=== PATIENT | female | born 1975 | race Caucasian/White ===

== ENCOUNTER 2016-07-18 15:06 | Emergency (ER) | payer OTHER ==
[~2016-07-18] VITALS: Ht 160 cm; Wt 59.0 kg
[~2016-07-18 15:06] MED LIST: FERR325T PO; MIDO200C PO; NAPR500 PO
[2016-07-18 15:10] VITALS: BP 119/67; PULSE 88; RESP 16; TEMP 98.6; O2SAT 98
[2016-07-18] MEDS ORDERED: DOXY1CAP74 PO (15:24)
[2016-07-18] MEDS ORDERED: SODIUM CHLOR 0.9% 1000 ML INJ 1,000 ML IV SCH (15:27)
[2016-07-18] MEDS ORDERED: SODIUM CHLORIDE 0.9% FLUSH 10 ML FLUSH IV FLUSH PRN (15:30)
[2016-07-18] MEDS ORDERED: ALUMINUM/MAGNESIUM/SIMETH 30 ML CUP PO ONE (15:30)
[2016-07-18] MEDS ORDERED: ONDANSETRON HCL 4 MG/2 ML VIAL IVP ONE (15:30)
[2016-07-18] MEDS ORDERED: LIDOCAINE VISCOUS 2% SOLN 15 ML UDC PO ONE (15:30)
--- NOTE | 2016-07-18 15:42 | PD ---
HPI Chief Complaint: Abdominal Pain Time Seen by Provider: 15:16 Travel History International Travel<30 days: No Contact w/Intl Traveler<30days: No Traveled to known affect area: No History of Present Illness HPI Patient is a 40-year-old female who presents to emergency room with complaints of nausea. Patient reports that she is having a little bit of indigestion, reports that she feels nauseous but has not vomited. Patient was concerned that she may be , reports that she took a home test which was negative, reports concern as "you can't trust those over the counter test." Patient has not missed any periods. Reports that her cycle has been normal. Denies fever/chills. Patient denies any abdominal pain at this time, denies urinary urgency or frequency. PFSH Past Medical History Hx Anticoagulant Therapy: No Cardiovascular Problems: No Chemotherapy: No Cerebrovascular Accident: No Diabetes: No Diminished Hearing: No Respiratory: No Immunizations Current: Yes Tetanus Vaccination: < 5 Years Influenza Vaccination: No ?: Unknown : 2 Para: 2 Miscarriage: 0 : 0 Past Surgical History Gynecologic Surgery: Yes (OVARIAN BURNING OF ABNORMAL CELLS) Hysterectomy: No Other Surgery: Yes (BREAST IMPLANTS) Social History Alcohol Use: Yes (RARE) Tobacco Use: Yes (1/2-1 PPD) Substance Use: No Allergies-Medications (Allergen,Severity, Reaction): Coded Allergies: No Known Allergies (Unverified , 07/18/16) Reported Meds & Prescriptions Reported Meds & Active Scripts Active Reported Doxycycline 40 Mg Cap 40 Mg PO DAILY Review of Systems General / Constitutional: No: Fever, Chills Eyes: No: Visual changes HENT: No: Headaches Cardiovascular: No: Chest Pain or Discomfort Respiratory: No: Shortness of Breath Gastrointestinal: Positive: Nausea, No: Vomiting, Diarrhea, Abdominal Pain Genitourinary: No: Dysuria Musculoskeletal: No: Pain Skin: No Rash Neurologic: No: Weakness Psychiatric: No: Depression Endocrine: No: Polydipsia Hematologic/Lymphatic: No: Easy Bruising Physical Exam Narrative GENERAL: No acute distress, nontoxic, patient smiling on exam SKIN: Focused skin assessment warm/dry. HEAD: Atraumatic. Normocephalic. EYES:. No scleral icterus. No injection or drainage. ENT: No nasal bleeding or discharge. Mucous membranes pink and moist. NECK: Trachea midline. No JVD. CARDIOVASCULAR: Regular rate and rhythm. No murmur appreciated. RESPIRATORY: No accessory muscle use. Clear to auscultation. Breath sounds equal bilaterally. GASTROINTESTINAL: Abdomen soft, non-tender, nondistended. Hepatic and splenic margins not palpable. MUSCULOSKELETAL: No obvious deformities. No clubbing. No cyanosis. No edema. NEUROLOGICAL: Awake and alert. No obvious cranial nerve deficits. Motor grossly within normal limits. Normal speech. PSYCHIATRIC: Appropriate mood and affect; insight and judgment normal. Data Data Last Documented VS Vital Signs Date Time Temp Pulse Resp B/P Pulse Ox O2 Delivery O2 Flow Rate FiO2 07/18/16 15:20 16 07/18/16 15:10 98.6 88 119/67 98 Orders Complete Blood Count With Diff (07/18/16 15:27) Comprehensive Metabolic Panel (07/18/16 15:27) Lipase (07/18/16 15:27) Urinalysis - C+S If Indicated (07/18/16 15:27) Iv Access Insert/Monitor (07/18/16 15:27) Ondansetron Inj (Zofran Inj) (07/18/16 15:30) Sodium Chlor 0.9% 1000 Ml Inj (Ns 1000 M (07/18/16 15:27) Sodium Chloride 0.9% Flush (Ns Flush) (07/18/16 15:30) Al-Mag Hy-Si 40-40-4 Mg/Ml Liq (Mag-Al P (07/18/16 15:30) Lidocaine 2% Viscous (Xylocaine 2% Visco (07/18/16 15:30) Ed Urine Pregnancytest Poc (07/18/16 15:27) Labs Laboratory Tests Test 07/18/16 15:36 White Blood Count 7.6 TH/MM3 Red Blood Count 4.78 MIL/MM3 Hemoglobin 14.3 GM/DL Hematocrit 42.0 % Mean Corpuscular Volume 87.9 FL Mean Corpuscular Hemoglobin 29.8 PG Mean Corpuscular Hemoglobin 33.9 % Concent Red Cell Distribution Width 12.6 % Platelet Count 227 TH/MM3 Mean Platelet Volume 9.7 FL Neutrophils (%) (Auto) 68.9 % Lymphocytes (%) (Auto) 21.7 % Monocytes (%) (Auto) 7.8 % Eosinophils (%) (Auto) 0.8 % Basophils (%) (Auto) 0.8 % Neutrophils # (Auto) 5.2 TH/MM3 Lymphocytes # (Auto) 1.6 TH/MM3 Monocytes # (Auto) 0.6 TH/MM3 Eosinophils # (Auto) 0.1 TH/MM3 Basophils # (Auto) 0.1 TH/MM3 CBC Comment DIFF FINAL Differential Comment Urine Color YELLOW Urine Turbidity CLEAR Urine pH 6.0 Urine Specific [place] 1.001 Urine Protein NEG mg/dL Urine Glucose (UA) NEG mg/dL Urine Ketones NEG mg/dL Urine Occult Blood NEG Urine Nitrite NEG Urine Bilirubin NEG Urine Leukocyte Esterase NEG Urine WBC 0-2 /hpf Urine Squamous Epithelial 0-5 /hpf Cells Microscopic Urinalysis Comment CULT NOT INDICATED Sodium Level 143 MEQ/L Potassium Level 3.5 MEQ/L Chloride Level 107 MEQ/L Carbon Dioxide Level 27.6 MEQ/L Anion Gap 8 MEQ/L Blood Urea Nitrogen 6 MG/DL Creatinine 0.78 MG/DL Estimat Glomerular Filtration 82 ML/MIN Rate Random Glucose 121 MG/DL Calcium Level 8.9 MG/DL Total Bilirubin 0.5 MG/DL Aspartate Amino Transf 17 U/L (AST/SGOT) Alanine Aminotransferase 19 U/L (ALT/SGPT) Alkaline Phosphatase 52 U/L Total Protein 7.7 GM/DL Albumin 4.0 GM/DL Lipase 94 U/L [facility] Medical Decision Making Medical Screen Exam Complete: Yes Emergency Medical Condition: Yes Interpretation(s) Vital Signs Date Time Temp Pulse Resp B/P Pulse Ox O2 Delivery O2 Flow Rate FiO2 07/18/16 15:20 16 07/18/16 15:10 98.6 88 16 119/67 98 Differential Diagnosis GERD, esophagitis, gastroenteritis, , electrolyte abnormality Narrative Course Patient is a 40-year-old female who presents to emergency room with complaints of nausea. Patient reports that she has been feeling nauseous all day, reports concern for possible . Patient reports no abdominal pain, denies constipation or diarrhea. Patient denies dysuria, urinary urgency or frequency. Overall, patient is well-appearing, she is laughing and smiling on exam. Abdomen is soft, nontender, nondistended, no peritoneal signs. Plan to obtain basic labs, will give IV Zofran as well as GI cocktail and observed. Will check for test. Urine test negative Laboratory Tests Test 07/18/16 15:36 White Blood Count 7.6 TH/MM3 (4.0-11.0) Red Blood Count 4.78 MIL/MM3 (4.00-5.30) Hemoglobin 14.3 GM/DL (11.6-15.3) Hematocrit 42.0 % (35.0-46.0) Mean Corpuscular Volume 87.9 FL (80.0-100.0) Mean Corpuscular Hemoglobin 29.8 PG (27.0-34.0) Mean Corpuscular Hemoglobin 33.9 % Concent (32.0-36.0) Red Cell Distribution Width 12.6 % (11.6-17.2) Platelet Count 227 TH/MM3 (150-450) Mean Platelet Volume 9.7 FL (7.0-11.0) Neutrophils (%) (Auto) 68.9 % (16.0-70.0) Lymphocytes (%) (Auto) 21.7 % (9.0-44.0) Monocytes (%) (Auto) 7.8 % (0.0-8.0) Eosinophils (%) (Auto) 0.8 % (0.0-4.0) Basophils (%) (Auto) 0.8 % (0.0-2.0) Neutrophils # (Auto) 5.2 TH/MM3 (1.8-7.7) Lymphocytes # (Auto) 1.6 TH/MM3 (1.0-4.8) Monocytes # (Auto) 0.6 TH/MM3 (0-0.9) Eosinophils # (Auto) 0.1 TH/MM3 (0-0.4) Basophils # (Auto) 0.1 TH/MM3 (0-0.2) CBC Comment DIFF FINAL Differential Comment Urine Color YELLOW (YELLW/STRAW) Urine Turbidity CLEAR (CLEAR) Urine pH 6.0 (5.0-8.5) Urine Specific [place] 1.001 (1.002-1.035) Urine Protein NEG mg/dL (NEG-TRACE) Urine Glucose (UA) NEG mg/dL (NEG) Urine Ketones NEG mg/dL (NEG) Urine Occult Blood NEG (NEG) Urine Nitrite NEG (NEG) Urine Bilirubin NEG (NEG) Urine Leukocyte Esterase NEG (NEG) Urine WBC 0-2 /hpf (0-5) Urine Squamous Epithelial 0-5 /hpf (0-5) Cells Microscopic Urinalysis Comment CULT NOT INDICATED Sodium Level 143 MEQ/L (136-145) Potassium Level 3.5 MEQ/L (3.5-5.1) Chloride Level 107 MEQ/L (98-107) Carbon Dioxide Level 27.6 MEQ/L (21.0-32.0) Anion Gap 8 MEQ/L (5-15) Blood Urea Nitrogen 6 MG/DL (7-18) Creatinine 0.78 MG/DL (0.50-1.00) Estimat Glomerular Filtration 82 ML/MIN (>89) Rate Random Glucose 121 MG/DL (74-106) Calcium Level 8.9 MG/DL (8.5-10.1) Total Bilirubin 0.5 MG/DL (0.2-1.0) Aspartate Amino Transf 17 U/L (15-37) (AST/SGOT) Alanine Aminotransferase 19 U/L (10-53) (ALT/SGPT) Alkaline Phosphatase 52 U/L (45-117) Total Protein 7.7 GM/DL (6.4-8.2) Albumin 4.0 GM/DL (3.4-5.0) Lipase 94 U/L (73-393) Patient re-evaluated, patient reports that she is feeling much better at this time. Reports complete resolution of nausea. Patient reports that "it must have been something I ate this week because I ate blooming onions on Saturday and I had 40 chicken wings with my on Saturday." Discussed need for bland foods for the next week. Will start patient on omeprazole. Abdomen is soft, nt/ nd, no peritoneal signs on discharge. Diagnosis Primary Impression: Nausea Additional Impression: GERD (gastroesophageal reflux disease) Qualified Code: K21.9 - Gastroesophageal reflux disease, esophagitis presence not specified Patient Instructions: General Instructions Additional Instructions: Please follow up with you primary care doctor Please return to emergency room as needed Return to the emergency room if symptoms return Scripts Omeprazole 40 Mg Cap40 Mg PO DAILY #14 CAP Ref 0 Prov:Deborah Oquendo DO 07/18/16 Disposition: 01 DISCHARGE HOME Condition: Stable Deborah Oquendo DO Jul 18, 2016 15:42
[2016-07-18 16:03] LABS: AUTOMATED NEUTROPHIL # 5.2 TH/MM3 (1.8-7.7); BASOPHIL # 0.1 TH/MM3 (0-0.2); BASOPHIL % 0.8 % (0.0-2.0); EOSINOPHIL # 0.1 TH/MM3 (0-0.4); EOSINOPHIL % 0.8 % (0.0-4.0); HEMO FLAGS DIFF FINAL; LYMPH % 21.7 % (9.0-44.0); LYMPHOCYTE # 1.6 TH/MM3 (1.0-4.8); MEAN CELL VOLUME 87.9 FL (80.0-100.0); MEAN CORPUSCULAR HEMOGLOBIN 29.8 PG (27.0-34.0); MEAN CORPUSCULAR HGB CONC 33.9 % (32.0-36.0); MONO % 7.8 % (0.0-8.0); NEUT % 68.9 % (16.0-70.0); PLATELET COUNT 227 TH/MM3 (150-450); RED BLOOD COUNT 4.78 MIL/MM3 (4.00-5.30); RED CELL DISTRIBUTION WIDTH 12.6 % (11.6-17.2); WHITE BLOOD COUNT 7.6 TH/MM3 (4.0-11.0)
[2016-07-18 16:04] LABS: BLOOD, URINE NEG (NEG); GLUCOSE,URINE NEG (NEG); KETONE, URINE NEG (NEG); NITRITE,URINE NEG (NEG)
[2016-07-18 16:11] LABS: CHLORIDE 107 MEQ/L (98-107); POTASSIUM 3.5 MEQ/L (3.5-5.1); SODIUM (NA) 143 MEQ/L (136-145)
[2016-07-18 16:15] LABS: ANION GAP 8 MEQ/L (5-15); BICARBONATE 27.6 MEQ/L (21.0-32.0); BLOOD UREA NITROGEN 6 MG/DL (7-18)
[2016-07-18 16:18] LABS: ALT (GPT) 19 U/L (10-53); AST (GOT) 17 U/L (15-37); GLOMERULAR FILTRATION RATE 82 ML/MIN (>89); URINE COLOR YELLOW (YELLW/STRAW)
[2016-07-18 16:19] LABS: COMMENT (UR) CULT NOT INDICATED; CULTURE IF INDICATED CULT NOT INDICATED; SQUAMOUS EPITHELIAL CELL URINE 0-5 /hpf (0-5); WBC, URINE 0-2 /hpf (0-5)
[2016-07-18 16:20] LABS: TOTAL BILIRUBIN ADULT 0.5 MG/DL (0.2-1.0)
[2016-07-18 16:21] LABS: ALKALINE PHOSPHATASE 52 U/L (45-117)
[2016-07-18] MEDS ORDERED: OMEP40CA2 PO (16:27)
[2016-07-18 16:36] VITALS: BP 145/65
[2016-07-18] MEDS ORDERED: ZOFR4TAB3 SL (20:31)
== END 2016-07-18 16:43 | disposition home or self-care (01) ==
LOC: PHED 15:06
DX: R11.0 Nausea (principal); K21.9 Gastro-esophageal reflux disease without esophagitis; F17.200 Nicotine dependence, unspecified, uncomplicated
CPT/HCPCS: 80053; 81001; 83690; 84703; 85025; 96361; 96374; 99284; J2405; J7030

== ENCOUNTER 2016-07-18 19:24 | Emergency (ER) | payer OTHER ==
[~2016-07-18] VITALS: Ht 160 cm; Wt 59.3 kg
[~2016-07-18 19:24] MED LIST changes: +DOXY1CAP74 PO; +OMEP40CA2 PO
[2016-07-18 19:32] VITALS: BP 103/64; PULSE 79; RESP 14; TEMP 98.2; O2SAT 98
[2016-07-18] MEDS ORDERED: ONDANSETRON ODT 4 MG TAB PO ONE (20:15)
[2016-07-18] MEDS ORDERED: SUCRALFATE 1 GM/10 ML CUP PO ONE (20:15)
[2016-07-18] MEDS ORDERED: ZOFR4TAB3 SL (20:31)
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
[2016-07-18] MEDS ORDERED: ALPRAZolam 0.5 MG TAB PO ONE (21:00)
[2016-07-18 21:28] VITALS: BP 98/60; PULSE 70; RESP 20; O2SAT 98
[2016-07-18 21:48] VITALS: BP 102/57; PULSE 70; O2SAT 97
== END 2016-07-18 21:53 | disposition home or self-care (01) ==
LOC: PHEFT 19:24
DX: K29.00 Acute gastritis without bleeding (principal)
CPT/HCPCS: 99283

== ENCOUNTER 2017-03-01 05:53 | Observation (INO) | payer OTHER ==
--- NOTE | 2017-02-28 22:29 | MH ---
cc: AMOS PIÑA DATE OF ADMISSION 03/01/2017 DATE OF SURGERY 03/01/17 HISTORY OF PRESENT ILLNESS The patient is a 41-year-old white female, who started with our office in January of 2017. She presented complaining with a 4-month history of a palpable bulge from the vagina with pelvic pressure and increased pain with her periods and difficulty passing a bowel movement. She had no other complaints. Examination at that time revealed that she had pelvic prolapse with a cystocele second-degree. second-degree rectocele and third-degree uterine prolapse. We talked by different treatment options for that and she was most interested in having surgical repair with a TVH and anterior and posterior coporrhaphy and that is what we will proceed to do. She is aware of the risks of the surgery including but not limited to infection, bleeding, damage to internal organs requiring repair such as damage to the bladder, the bowel, the ureter. She would like to proceed. PAST MEDICAL HISTORY Negative. PAST SURGICAL HISTORY Cone biopsy MEDICATIONS Currently Paxil. ALLERGIES LATEX CORTISONE CREAM SOCIAL HISTORY Half a pack per day of tobacco. No alcohol or drug use. She is and a homemaker. FAMILY HISTORY Coronary artery disease and CVA. GYNECOLOGIC HISTORY She has had a cone biopsy with negative follow-up. OBSTETRICAL HISTORY x2 PHYSICAL EXAMINATION VITAL SIGNS: Her weight is 138, blood pressure 110/70, pulse 70. BREASTS: Without masses, nodes or discharge. CHEST: Clear to auscultation bilaterally. CARDIAC: Regular rate and rhythm without murmur, rub or gallop. ABDOMEN: Soft and nontender, nondistended. No hepatosplenomegaly. No CVA tenderness. No hernias noted. PELVIC: vulva, vagina, normal external female genitalia. She has a second-degree cystocele, second-degree rectocele third-degree uterine prolapse. Uterus is mobile, nontender, no adnexal masses. ASSESSMENT/PLAN Symptomatic uterine prolapse and symptomatic cystocele and rectocele. PLAN Transvaginal hysterectomy with anterior posterior colporrhaphy. MD GRACE Hollis/ /9:03 PM /10:10 PM
[~2017-03-01] VITALS: Ht 160 cm; Wt 60.8 kg
[~2017-03-01 05:53] MED LIST changes: +CLOB0.055 TOPICAL; -DOXY1CAP74 PO; -FERR325T PO; -MIDO200C PO; -NAPR500 PO; -OMEP40CA2 PO; +PARO20TA2 PO
[2017-03-01] MEDS ORDERED: POVIDONE IODINE 5% (ANTISEPSIS KIT) 4 APPLICATIONS EACH NARE PRN (06:15)
[2017-03-01] MEDS ORDERED: METOPROLOL TARTRATE 25 MG TAB PO PRN (06:15)
[2017-03-01] MEDS ORDERED: SODIUM CHLORID 0.9% 500 ML IV PRN (06:15)
[2017-03-01] MEDS ORDERED: LACTATED RINGER'S 1000 ML IV PRN (06:15)
[2017-03-01] MEDS ORDERED: CHLORHEXIDINE GLUCONATE 2 % 1 PACK (2 CLOTHS) TOPICAL PRN (06:15)
[2017-03-01] MEDS ORDERED: ACETAMINOPHEN 1000 MG/100 ML 100 ML IV ONE (06:52)
[2017-03-01 06:59] LABS: AUTOMATED NEUTROPHIL # 4.5 TH/MM3 (1.8-7.7); BASOPHIL # 0.1 TH/MM3 (0-0.2); BASOPHIL % 1.3 % (0.0-2.0); EOSINOPHIL # 0.2 TH/MM3 (0-0.4); EOSINOPHIL % 2.3 % (0.0-4.0); HEMATOCRIT 40.7 % (35.0-46.0); HEMOGLOBIN 14.1 GM/DL (11.6-15.3); LYMPH % 26.8 % (9.0-44.0); LYMPHOCYTE # 2.1 TH/MM3 (1.0-4.8); MEAN CELL VOLUME 89.8 FL (80.0-100.0); MEAN CORPUSCULAR HEMOGLOBIN 31.1 PG (27.0-34.0); MEAN CORPUSCULAR HGB CONC 34.7 % (32.0-36.0); MEAN PLATELET VOLUME 9.5 FL (7.0-11.0); MONO % 13.1 % (0.0-8.0); NEUT % 56.5 % (16.0-70.0); PLATELET COUNT 264 TH/MM3 (150-450); RED BLOOD COUNT 4.53 MIL/MM3 (4.00-5.30); RED CELL DISTRIBUTION WIDTH 13.3 % (11.6-17.2); WHITE BLOOD COUNT 7.9 TH/MM3 (4.0-11.0)
[2017-03-01] MEDS ORDERED: VASOPRESSIN 20 UNITS/ML VIAL (IVTITR) ONE (07:01)
[2017-03-01] MEDS ORDERED: LIDOCAINE 2%/EPINEPHrine PF 1:200,000 20ML SDV ONE (07:01)
[2017-03-01] MEDS ORDERED: ceFAZolin INJ 1,000 MG VIAL IV PUSH ONE (08:30)
[2017-03-01] MEDS ORDERED: ESTROGENS CONJUGATED VAG CREA 15 APPL/30 GM TUBE ONE (09:29)
[2017-03-01] MEDS ORDERED: DO NOT ADM ANY ANTICOAGULANT DRUGS PRN (10:02)
[2017-03-01] MEDS ORDERED: *ONDANSETRON 4 MG VIAL PERIprocedural Use ONLY ONE (10:11)
[2017-03-01] MEDS ORDERED: *morphine SULFATE 10 MG/ML PERIprocedure ONLY ONE (10:11)
[2017-03-01] MEDS ORDERED: oxyCODONE/ACETAMINOPHEN 5 MG/325 MG TAB PO PRN ×2 (10:15)
[2017-03-01] MEDS ORDERED: SODIUM CHLORIDE 0.9% FLUSH 10 ML FLUSH IV FLUSH PRN (10:15)
[2017-03-01] MEDS ORDERED: HYDROmorphone HCL PF 1 MG/ML VIAL IVP PRN (10:15)
[2017-03-01] MEDS ORDERED: ONDANSETRON HCL 4 MG/2 ML VIAL IVP PRN (10:15)
[2017-03-01] MEDS ORDERED: diphenhydrAMINE HCL 25 MG CAP PO PRN (10:15)
[2017-03-01] MEDS ORDERED: *PROMETHAZINE 25 MG/ML VIAL PERIprocedural use ONLY ONE (10:41)
[2017-03-01] MEDS: LACTATED RINGER'S 1000 ML INJ 1,000 ML IV SCH ×2 (10:45→23:42)
[2017-03-01 11:10] VITALS: BP 98/61; PULSE 76; RESP 13; TEMP 97.2; O2SAT 100
[2017-03-01] MEDS ORDERED: PROPOFOL 200 MG/20 ML AMP IV ONE (12:00)
[2017-03-01] MEDS ORDERED: ceFAZolin INJ 1,000 MG VIAL IV ONE (12:00)
[2017-03-01] MEDS ORDERED: ONDANSETRON HCL 4 MG/2 ML VIAL IV ONE (12:00)
[2017-03-01] MEDS ORDERED: ROCURONIUM INJ 50 MG/5 ML SYRINGE IV PUSH ONE (12:00)
[2017-03-01] MEDS ORDERED: GLYCOPYRROLATE 1 MG/5 ML SYRINGE IV PUSH ONE (12:00)
[2017-03-01] MEDS ORDERED: KETOROLAC TROMETHAMINE 30 MG/ML (IVP) VIAL IV PUSH ONE (12:00)
[2017-03-01] MEDS ORDERED: LIDOCAINE HCL 1% PF 5 ML SYRINGE OTHER ONE (12:00)
[2017-03-01] MEDS ORDERED: NEOSTIGMINE 5 MG/5 ML SYRINGE IV PUSH ONE (12:00)
[2017-03-01] MEDS: KETOROLAC TROMETHAMINE 30 MG/ML (IVP) VIAL IVP PRN (14:35)
[2017-03-01 15:10] VITALS: BP 93/60; PULSE 74; RESP 12; TEMP 98.2; O2SAT 98
[2017-03-01] MEDS: HYDROmorphone HCL PF 2 MG/ML VIAL IV PUSH PRN ×2 (16:14→20:21)
[2017-03-01 20:00] VITALS: BP 97/56; PULSE 68; RESP 18; TEMP 97.8; O2SAT 97
[2017-03-01] MEDS ORDERED: SODIUM CHLORIDE 0.9% FLUSH 10 ML FLUSH IV FLUSH SCH (21:00)
[2017-03-01] MEDS ORDERED: PARoxetine HCL 20 MG TAB PO SCH (21:00)
[2017-03-01 23:57] VITALS: BP 93/56; PULSE 62; RESP 16; TEMP 98; O2SAT 97
[2017-03-02] MEDS: HYDROmorphone HCL PF 2 MG/ML VIAL IV PUSH PRN (03:34)
[2017-03-02 04:00] VITALS: BP 101/69; PULSE 82; RESP 16; TEMP 98.1; O2SAT 93
[2017-03-02 08:00] VITALS: BP 101/56; PULSE 72; RESP 14; TEMP 98.2; O2SAT 97
[2017-03-02] MEDS: KETOROLAC TROMETHAMINE 30 MG/ML (IVP) VIAL IVP PRN (10:22)
[2017-03-02 12:00] VITALS: BP 97/55; PULSE 74; RESP 16; TEMP 98.3; O2SAT 96
[2017-03-02] MEDS ORDERED: OXYC1TAB63 PO (14:54)
--- NOTE | 2017-03-02 14:56 | HHI.DCPOC ---
Discharge Care Plan Diagnosis: (1) S/P vaginal hysterectomy Report Symptoms to Your Doctor -Temperature above 100.5 degrees -Redness, of incision or excessive or foul smelling drainage -Unusual pain or calf pain -Increased vaginal bleeding -Painful or difficulty urinating -Feelings of extreme sadness or anxiety after 2 weeks Goals to Promote Your Health * To prevent worsening of your condition and complications * To maintain your health at the optimal level Directions to Meet Your Goals Take your medications as prescribed Follow your dietary instruction Follow activity as directed Ensure plenty of rest for recovery Drink fluids for hydration Keep your appointments as scheduled Take your immunizations and boosters as scheduled If your symptoms worsen call your PCP, if no PCP go to Urgent Care Center or Emergency Room Smoking is Dangerous to Your Health. Avoid second hand smoke Call the 24-hour crisis hotline for domestic abuse at Violette Hernández MD Mar 02, 2017 14:56
--- NOTE | 2017-03-02 19:10 | MP ---
cc: AMOS PIÑA DATE OF SURGERY 03/01/17 PREOPERATIVE DIAGNOSIS Symptomatic uterine prolapse, symptomatic cystocele, symptomatic rectocele. POSTOPERATIVE DIAGNOSIS Symptomatic uterine prolapse, symptomatic cystocele, symptomatic rectocele. PROCEDURE PERFORMED Transvaginal hysterectomy with anterior and posterior colporrhaphies SURGEON Shawn Piña MD ANESTHESIA General endotracheal FINDINGS IN SURGERY A normal size mobile uterus, normal appearing cervix. BLOOD LOSS 100 mL COMPLICATIONS None PROCEDURE IN DETAIL After proper consents were obtained, the patient was taken to the operating room where general endotracheal anesthesia was applied. She was then placed in dorsal lithotomy position, sterilely prepped and draped and a Villasenor catheter was placed. At this time, a weighted speculum was placed in the vaginal vault. The anterior and posterior lips of the cervix were grasped with a thyroid tenaculum. I injected lidocaine with epinephrine solution circumferentially in the cervical vesicle junction. I then scored that using the Bovie cautery and then I sharply dissected the bladder off of the cervix until we entered into the anterior peritoneal cavity. I placed the right angle Brendon retractor to protect the bladder. I then went ahead and turned posteriorly and I did sharp dissection in terms of the posterior pressure on cavity without difficulty. I then ran the posterior cuff with a 2-0 Vicryl in a running interlocking fashion. We then placed the long ___ speculum into the abdominopelvic cavity and then we came across the uterosacral ligaments on each side using a curved Brendon clamp, clamping, cutting, placing a 0 Vicryl suture through that. We then came across the cardinal ligaments clamping, cutting, placing 0 Vicryl suture through that. We then came across the uterine artery clamping, cutting, placing a 0 Vicryl suture through that. We then came across the uterine ovarian ligament and the tube clamping across that removing the uterus and cervix and then placing a 0 Vicryl tie beneath that followed by a ___ ligature with excellent hemostasis noted of all of the pedicles. At this time, I turned my attention to the anterior colporrhaphy. We sharply dissected the vaginal mucosa off of the deeper tissue and that out laterally. We then reapproximated the deeper tissue using 2-0 Vicryl sutures in an interrupted fashion with good reapproximation of the bladder ____. We then trimmed the excess vaginal mucosa. We ran the remaining mucosa using a 2-0 Vicryl with excellent reapproximation noted. At this time, I turned my attention to the pedicles of the vaginal hysterectomy. All were hemostatic. We then closed the vaginal cuff using interrupted sutures of 0 Vicryl in [id number] fashion with good reapproximation and closure noted. We then developed the posterior repair, sharply dissecting the vaginal mucosa off of the deeper tissue out laterally. We then reapproximated that tissue using 2-0 Vicryl sutures in interrupted fashion. We then trimmed the excess vaginal mucosa. We ran the remaining mucosa with excellent closure noted. At this time, we went ahead and placed a Premarin cream and vag back in the vaginal vault. Blood counts were correct and the patient was stable to the recovery room. MD GRACE Hollis/ /10:13 AM /6:56 PM
== END 2017-03-02 15:15 | disposition home or self-care (01) ==
LOC: HSDC 05:53 → HSDI 10:10 → H1EA 11:11
PROVIDERS: ADMIT Obstetrics & Gynecology; ATTEND Obstetrics & Gynecology
DX: N81.3 Complete uterovaginal prolapse (principal); N80.0 Endometriosis of uterus; N88.8 Other specified noninflammatory disorders of cervix uteri; F41.9 Anxiety disorder, unspecified
CPT/HCPCS: 00942; 57260; 58260; 84702; 85025; 88305; 96374; 96375; 96376; G0378; J0131; J0690; J1170; J1885; J2270; J2405; J2550; J2710; J3010; J7120